=== PATIENT | female | born 1945 | race Caucasian/White ===

== ENCOUNTER 2021-08-17 08:37 | Emergency (ER) | payer MEDICARE, SELFPAY ==
[2021-08-17 08:46] VITALS: BP 176/90; PULSE 92; RESP 16; TEMP 36.8; O2SAT 98
--- NOTE | 2021-08-17 09:14 | ED.EAR ---
HPI - Ear Problem General Chief complaint: Ear Stated complaint: Ear Pain Time Seen by Provider: 08/17/21 09:14 Source: patient and RN notes reviewed Mode of arrival: ambulatory Limitations: no limitations History of Present Illness HPI Narrative: 75-year-old female presents the concern for right sided sinus pain and pressure, ear pain and pressure. 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 She is concerned for the symptoms because she is scheduled to fly on Sunday. She denies taking any [id number] medications. MD Complaint: ear pain Related Data Home Medications Medication Instructions Recorded Confirmed Htn Medication PO DAILY 08/17/21 Allergies Allergy/AdvReac Type Severity Reaction Status Date / Time aspirin Allergy Unknown Nausea and Verified 08/17/21 09:10 Vomiting NSAIDS (Non-Steroidal Allergy Unknown Nausea and Verified 08/17/21 09:10 Anti-Inflamma Vomiting Review of Systems Review of Systems: CONSTITUTIONAL: Denies malaise, chills, sweats, or fever. EYES: Denies visual changes, redness, or discharge. ENT: Denies rhinorrhea, congestion. Reports sinus pain, otalgia. Denies sore throat. CARDIOVASCULAR: Denies chest pain, palpitations, or edema. RESPIRATORY: Reports morning cough. Denies dyspnea. GASTROINTESTINAL: Denies abdominal pain, nausea, vomiting, diarrhea SKIN: Denies rash or itching. MUSCULOSKELETAL: Denies myalgia. NEUROLOGIC: Reports headache. All systems reviewed & are unremarkable except as noted in HPI and below PMFSH Comments At time of signature, agree with nursing past medical, surgical, social and family history. There is no relevant family history pertinent to the presenting complaint Exam Narrative: GENERAL: Well-appearing, well-nourished, and in no acute distress. HEAD: Normocephalic EYES: PERRLA, conjunctivae clear ENT: Nares clear, turbinates erythematous, no discharge. Mucous membranes moist. TM pearly with sharp light reflex bilaterally; no tragal tenderness. Oropharynx not erythematous without lesions. Tonsils not enlarged and without exudate, no drooling, no hoarseness, no trismus, uvula midline. NECK: Supple. No lymphadenopathy CHEST: Clear to auscultation, breath sounds equal. No wheezing, rhonchi, rales, or stridor. No respiratory distress, speaks in full sentences. HEART: Regular rate and rhythm. No murmur heard. SKIN: Warm, dry, no rash. NEURO: Alert and oriented x3. PSYCH: Normal mood and affect Course Course Emergency Course: Patient is aware of diagnosis, understands and agrees to treatment plan. Anticipatory guidance given. Patient agrees to follow-up as directed and is aware of reasons to seek care at the emergency department. Portions of this record may have been created with voice recognition software Vital Signs Vital signs: Vital Signs Temperature 98.2 F 08/17/21 08:46 Pulse Rate 92 08/17/21 08:46 Respiratory Rate 16 08/17/21 08:46 Blood Pressure 176/90 H 08/17/21 08:46 Pulse Oximetry 98 08/17/21 08:46 Temperature 98.2 F 08/17/21 08:46 Pulse Rate 92 08/17/21 08:46 Respiratory Rate 16 08/17/21 08:46 Blood Pressure 176/90 H 08/17/21 08:46 Pulse Oximetry 98 08/17/21 08:46 Reviewed. Patient has history of hypertension Medical Decision Making MDM Narrative Medical decision making narrative: Differential diagnosis considered: Gonzalez virus, strep pharyngitis, allergic rhinitis, upper respiratory tract infection, sinusitis, rhinosinusitis, nasopharyngitis. viral pharyngitis, otitis media, otitis externa, M?ni?re's disease, otitis effusion, cerumen impaction. Exam findings show no acute concerns or changes; patient is non-toxic appearing and is in no distress. Patient is appropriate for outpatient treatment and follow-up. Vital Signs Vital Signs: Vital Signs Temperature 98.2 F 08/17/21 08:46 Pulse Rate 92 08/17/21 08:46 Respiratory Rate 16 08/17/21 08:46 Blood Pressure 176/90 H 08/17/21 08:46 Puls
== END 2021-08-17 10:15 | disposition home or self-care (01) ==
PROVIDERS: Emergency Provider Nurse Practitioner; PCP Internal Medicine
DX: J01.90 Acute sinusitis, unspecified (principal); Z20.822 Contact with and (suspected) exposure to COVID-19; H81.09 Meniere's disease, unspecified ear; I10 Essential (primary) hypertension
CPT/HCPCS: 87426; 99203; C9803; G0463

== ENCOUNTER 2023-11-16 12:22 | Emergency (ER) | payer MEDICARE, SELFPAY ==
--- NOTE | ~2023-11-16 | XR_ITS ---
EXAMINATION: XR shoulder RT min 2V DATE: 11/16/2023 13:00 INDICATION: Right shoulder pain. TECHNIQUE: 3 views of right shoulder were obtained. COMPARISON: None. FINDINGS: Bone alignment is normal. No fracture. There is mild osteoarthritis of glenohumeral joint a nd severe osteoarthritis of acromioclavicular joint. IMPRESSION: 1. Polyarticular osteoarthritis. Reviewed, dictated and finalized at location A.
--- NOTE | 2023-11-16 12:31 | ED.GENADULT ---
HPI - General Adult General Chief complaint: Extremity Injury, Upper Stated complaint: Right shoulder pain Time Seen by Provider: 11/16/23 12:48 Source: patient, RN notes reviewed and old records reviewed Mode of arrival: ambulatory Limitations: no limitations History of Present Illness HPI narrative: 78 year old female who presents to [facility] with complaints of right shoulder pain since past Sunday with no improvement in symptoms using Tylenol and also heat. Patient reports that she was on toilet at her daughter's house and it sets lower and used sink to pull herself up and has been having pain since. Patient reports increase discomfort with movement of her shoulder. MD complaint: right shoulder pain Onset (ago): day(s) (5-6 days) Location: right and upper extremity (shoulder) Severity scale (1-10): 2 Quality: aching Treatments prior to arrival: heat therapy and other (Tylenol) Related Data Home Medications Medication Instructions Recorded Confirmed Probiotic 11/16/23 cholecalciferol (vitamin D3) 125 11/16/23 mcg (5,000 unit) tablet escitalopram oxalate 10 mg tablet mg 11/16/23 omeprazole 11/16/23 triamterene 37.5 tablet 11/16/23 mg-hydrochlorothiazide 25 mg tablet Allergies Allergy/AdvReac Type Severity Reaction Status Date / Time aspirin Allergy Unknown Nausea and Verified 11/16/23 12:32 Vomiting NSAIDS (Non-Steroidal Allergy Unknown Nausea and Verified 11/16/23 12:32 Anti-Inflamma Vomiting Review of Systems Review of Systems: CONSTITUTIONAL: Denies fever, chills, or sweats. EYES: Denies visual changes, redness, or discharge. ENT: Denies rhinorrhea, congestion, sore throat, or otalgia. CARDIOVASCULAR: Denies chest pain, palpitations, or edema. RESPIRATORY: Denies cough or dyspnea. GASTROINTESTINAL: Denies abdominal pain, nausea, vomiting, or diarrhea. GENITOURINARY: Denies dysuria or hematuria. SKIN: Denies rash or itching. MUSCULOSKELETAL: Denies back pain,positive for right shoulder discomfort AC joint pain, or myalgia. NEUROLOGIC: Denies headache, numbness, or weakness. PSYCHIATRIC: Positive for history of anxiety or depression. All systems reviewed & are unremarkable except as noted in HPI and below PMFSH Past Medical History Medical History (Updated 11/16/23 @ 13:32 by Rebekah Rao NP) Foot fracture, right GERD (gastroesophageal reflux disease) Hypertension Surgical History Surgical History (Updated 11/16/23 @ 12:40 by Rebekah Rao NP) H/O: hysterectomy History of cataract surgery bilaterally History of cholecystectomy Social History Social History (Updated 11/16/23 @ 20:12 by Rebekah Rao NP) Smoking status: Former smoker Alcohol intake: current Alcohol use details: rare Substance use type: does not use Gender identity (if verbalized by the patient): Female Comments At time of signature, agree with nursing past medical, surgical, social and family history. There is no relevant family history pertinent to the presenting complaint Exam Narrative: GENERAL: Well-appearing, well-nourished, obese, in no acute distress. HEAD: Normocephalic, atraumatic. EYES: PERRLA and EOMI. ENT: Nares clear, no rhinorrhea or epistaxis. Mucous membranes moist. NECK: Supple. no lymphadenopathy CHEST: Clear to auscultation. No respiratory distress.SAO2 98% on room air HEART: Regular rate and rhythm. No murmur heard. Normal peripheral pulses. ABDOMEN: Soft, nontender, nondistended, normal active bowel sounds. EXTREMITIES: Decreased range of motion right shoulder unable to fully extend. No edema AC joint pain on palpation.strong pulses right arm,no numbness or tingling of left arm or hand SKIN: Warm, dry, no rash. NEURO: No focal deficits. Alert and oriented x3. Course Course Emergency Course: Patient is aware of diagnosis, understands and agrees to treatment plan.? Anticipatory guidance given.? Patient agrees to follow-up as directed and is elisabeth
[2023-11-16 12:32] VITALS: BP 148/62; PULSE 87; RESP 18; TEMP 36.8; O2SAT 98
[2023-11-16 12:34] VITALS: BP 148/62; PULSE 87; RESP 18; TEMP 36.8; O2SAT 98
== END 2023-11-16 13:44 | disposition home or self-care (01) ==
PROVIDERS: Emergency Provider Registered Nurse; PCP Family Medicine
DX: M19.011 Primary osteoarthritis, right shoulder (principal); Z87.891 Personal history of nicotine dependence; K21.9 Gastro-esophageal reflux disease without esophagitis; I10 Essential (primary) hypertension
CPT/HCPCS: 73030; 99213; G0463